=== PATIENT | male | born 1955 | race Caucasian/White ===

== ENCOUNTER 2017-09-29 00:39 | Emergency (ER) | payer MEDICAID ==
[~2017-09-29] VITALS: Ht 165.1 cm; Wt 68.0 kg
[2017-09-29 02:41] LABS: Eosinophils # (auto) 0.1 uL; Hemoglobin 14.5 g/dL (13.5-17.5); White Blood Cell 5.7 10^3/uL (4.4-10.8)
[2017-09-29 02:42] LABS: Basophils # (auto) 0 uL; Basophils % (auto) 0.8 % (0.0-2.0); Eosinophils % (auto) 1.1 % (0.0-7.0); Hematocrit 42.3 % (41.0-53.0); Lymphocytes # (auto) 1.7 uL; Lymphocytes % (auto) 30.6 % (10.0-50.0); Mean Corpuscular Hemoglobin 35.4 pg (28.0-32.0); Mean Corpuscular Hgb Conc. 34.4 g/dL (32.0-36.0); Mean Corpuscular Volume 103.1 fL (80.0-100.0); Monocytes # (auto) 0.5 uL; Monocytes % (auto) 9.6 % (0.0-12.0); Neutrophils # (auto) 3.3 uL; Neutrophils % (auto) 57.9 % (37.0-80.0); Platelet Count (auto) 150 10^3/uL (140-450); Red Blood Cells 4.11 10^6/uL (4.5-5.90); Red Cell Distribution Width 14.7 % (11.8-14.3)
[2017-09-29 03:15] LABS: Chloride 110 mmol/L (98-107); Potassium 3.9 mmol/L (3.5-5.1); Sodium 142 mmol/L (136-145)
[2017-09-29 03:17] LABS: Alanine Aminotransferase 79 U/L (16-61); Albumin 3.8 g/dL (3.4-5.0); Aspartate Aminotransferase 119 U/L (15-37); BUN/Creatinine Ratio 14.5; Blood Urea Nitrogen 8 mg/dL (7-18); Calcium 7.9 mg/dL (8.5-10.1); Carbon Dioxide 21 mmol/L (21-32); GFR African American 194 mL/min; GFR Non-African American 160 mL/min; Glucose 103 mg/dL (74-106); Magnesium 2.6 mg/dL (1.6-2.6)
[2017-09-29 03:27] LABS: Alkaline Phosphatase 88 U/L (45-117); Bilirubin, Total 0.4 mg/dL (0.2-1.0); Total Protein 7.9 g/dL (6.4-8.2)
[2017-09-29 03:45] LABS: Anion Gap 11 (5-15)
[2017-09-29 05:14] LABS: Amphetamine Screen, Urine NEGATIVE (NEGATIVE); Barbiturate Scree,Urine NEGATIVE (NEGATIVE); Benzodiazephine Screen, Urine NEGATIVE (NEGATIVE); Cannabinoid Screen, Urine NEGATIVE (NEGATIVE); Cocaine Screen, Urine NEGATIVE (NEGATIVE); Opiate Scree,Urine NEGATIVE (NEGATIVE); Phencyclidine Screen, Urine NEGATIVE (NEGATIVE)
[2017-09-29] MEDS ORDERED: IOHEXOL 350 MG/ML 100ML IJ ONE (09:01)
[2017-09-29 10:00] VITALS: BP 128/80
== END 2017-09-29 11:10 | disposition home or self-care (01) ==
LOC: ER 00:39 → EDBD 00:39 → ER 11:10
DX: S22.43XA Multiple fractures of ribs, bilateral, initial encounter for closed fracture (principal); K80.20 Calculus of gallbladder without cholecystitis without obstruction; R74.8 Abnormal levels of other serum enzymes; F10.10 Alcohol abuse, uncomplicated; F17.210 Nicotine dependence, cigarettes, uncomplicated; Y90.8 Blood alcohol level of 240 mg/100 ml or more; W19.XXXA Unspecified fall, initial encounter; Y93.89 Activity, other specified; Y92.89 Other specified places as the place of occurrence of the external cause; Y99.8 Other external cause status
CPT/HCPCS: 36415; 71045; 71101; 71275; 80053; 80307; 80320; 83735; 84484; 85025; 85379; 93005; 99285; Q9967